=== PATIENT | male | born 2000 | race Caucasian/White ===

== ENCOUNTER 2023-02-05 16:50 | Emergency (ER) | payer OTHER, MEDICAID ==
[~2023-02-05] VITALS: Ht 193 cm; Wt 71.7 kg
[2023-02-05] MEDS ORDERED: NALOXONE HCL 0.4 MG/ML AMPUL ONE (17:20)
[2023-02-05] MEDS ORDERED: IV NS 1000 ML 1,000 ML IV ONE (17:30)
[2023-02-05] MEDS ORDERED: NALOXONE HCL 0.4 MG/ML AMPUL IV ONE (17:30)
[2023-02-05 17:51] LABS: HEMATOCRIT 42.5 % (36.7-47.1); MEAN CORPUSCULAR HEMOGLOBIN 31.8 uug (23.8-33.4); PLATELET COUNT (AUTO) 233 K/uL (152-348)
[2023-02-05 18:01] LABS: CARBON DIOXIDE 30 mmol/L (21-32); CHLORIDE 106 mmol/L (98-107); GLUCOSE 96 mg/dL (74-106); POTASSIUM 4.5 mmol/L (3.5-5.1); UREA NITROGEN, BLOOD 15 mg/dL (7-18)
[2023-02-05 18:12] LABS: ETHANOL < 3 MG/DL (0-0)
[2023-02-05 18:17] LABS: ALANINE AMINOTRANSFERASE 34 U/L (16-63); ALKALINE PHOSPHATASE 93 U/L (50-136); ASPARTATE AMINOTRANSFERASE 9 U/L (15-37); BILIRUBIN,DIRECT 0.1 mg/dL (0.0-0.2); BILIRUBIN,TOTAL 0.2 mg/dL (0.2-1.0); TOTAL PROTEIN, SERUM 7.6 g/dL (6.4-8.2)
[2023-02-05] MEDS ORDERED: NALO4SPR BNOSTRILS (18:32)
[2023-02-05 19:00] LABS: *AMPHETAMINE, URINE NEGATIVE (NEGATIVE); *CANNABINOID, URINE POSITIVE (NEGATIVE); *COCCAINE, URINE NEGATIVE (NEGATIVE); *PHENCYCLIDINE SCREEN,URINE NEGATIVE (NEGATIVE)
== END 2023-02-05 18:36 | disposition left against medical advice (07) ==
LOC: ER 16:50
DX: T40.411A Poisoning by fentanyl or fentanyl analogs, accidental (unintentional), initial encounter (principal); Z79.899 Other long term (current) drug therapy; Y92.89 Other specified places as the place of occurrence of the external cause
CPT/HCPCS: 36415; 71045; 85025; A4663; G0480; J2310; J7040

== ENCOUNTER 2023-06-24 16:57 | Emergency (ER) | payer OTHER, BC ==
[~2023-06-24] VITALS: Ht 193 cm; Wt 68.0 kg
[~2023-06-24 16:57] MED LIST: NALO4SPR BNOSTRILS
[2023-06-24] MEDS ORDERED: NALO4SPR BNOSTRILS (17:25)
[2023-06-24 18:40] VITALS: BP 112/70; O2SAT 99
== END 2023-06-24 18:41 | disposition home or self-care (01) ==
LOC: ER 16:59
DX: T40.411A Poisoning by fentanyl or fentanyl analogs, accidental (unintentional), initial encounter (principal); Z79.899 Other long term (current) drug therapy; Y92.89 Other specified places as the place of occurrence of the external cause
CPT/HCPCS: A4663